=== PATIENT | female | born 1960 | race Caucasian/White ===

== ENCOUNTER 2018-06-08 10:01 | Day surgery (SDC) | payer OTHER ==
[~2018-06-08 10:01] MED LIST: DAILY VALUE1 EACH PO; LISINOPRIL20 MG PO; PROAIR HFA8.5 GM INH
[2018-06-08] MEDS ORDERED: ALBUTEROL2.5 MG/3 M INH (10:26)
--- NOTE | 2018-06-08 11:32 | NUR ---
06/08/18 1132 Cristina,Silva 1123 PT ARRIVED TO PACU COUGHING AND ON 6L MASK, RESP EVEN. PT DENIES NAUSEA AND PAIN. PT REORINETED TO PACU, PT AWAKE AND TALKING. 1128 O2 MASK REMOVED. 1129 AT BEDSIDE TALKNG TO PT. PT SITTING IN HIGH FOWLERS AND COUGHING OFF AND ON. PT DENIES SOB.
--- NOTE | 2018-06-08 11:47 | NUR ---
ICED WATER AND CRACKERS GIVEN. SPOUSE @ BS. CALL LIGHT W/IN REACH.
--- NOTE | 2018-06-08 12:36 | NUR ---
DC INSTRUCTIONS GIVEN IN PRESENCE OF SPOUSE AND BOTH VERBALIZE UNDERSTANDING. PATIENT DRESSING SELF.
--- NOTE | 2018-06-08 12:50 | NUR ---
PATIENT TRANSFERS SELF TO AND THEN PERSONAL VEHICLE AND TOLERATES THAT WELL.
--- NOTE | 2018-06-08 13:25 | PREHP ---
[facility] [address] [place], [place] [address] Signed ADMISSION DATE: 06/08/2018 CHIEF COMPLAINT: Right pharyngeal squamous cell carcinoma. HISTORY: Fide is a 58-year-old lady with a recently diagnosed right pharyngeal carcinoma. She had a direct laryngoscopy, esophagoscopy April 28, 2018, at [facility]. This showed a tumor on a stalk, felt to be completely excised, but turned out to be a squamous cell carcinoma, poorly differentiated. Margins were uncertain, least dysplasia at the margin edge. She is being taken to the operating room at this time for reinspection. Exam under anesthesia, direct laryngoscopy, esophagoscopy. PAST HISTORY AND REVIEW OF SYSTEMS: Generally positive for hypertension, high cholesterol. ALLERGIES: No allergies to medications. CURRENT MEDICATIONS: Lisinopril, vitamins. PAST SURGICAL HISTORY: Tubal ligation and the above-mentioned laryngoscopy. SOCIAL HISTORY: She is , lives in [place]. 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. Positive smoking and alcohol. FAMILY HISTORY: Unremarkable. PHYSICAL EXAMINATION: VITAL SIGNS: Stable, afebrile. GENERAL: Well-developed, well-nourished female, in no distress. HEAD AND NECK: Essentially unremarkable. No neck masses. CHEST: Clear. HEART: Regular rate and rhythm. ABDOMEN: Benign. EXTREMITIES: Benign. NEUROLOGIC: Grossly intact. IMPRESSION: Electronically Signed By: CHRIS POSADA MD 06/08/18 1325 PATIENT NAME: FIDE CHAVEZ PREETI PREOPERATIVE H&P DATE OF : 64 REPORT #: [id number] PHYSICIAN: CHRIS POSADA MD PCP: YAHAIRA SANTOS MD REPORT IS CONFIDENTIAL AND NOT TO BE RELEASED WITHOUT AUTHORIZATION [facility] [address] [place], [place] [address], [place] [address] Signed Right pharyngeal squamous cell carcinoma. RECOMMENDATIONS: She will be taken to the OR for exam under anesthesia, direct laryngoscopy, esophagoscopy to examine the tumor site. The risks of surgery including bleeding, infection, need for further therapy pending outcome of this procedure have all been explained and accepted by Fide. She understands and desires to proceed. Chris Posada MD GC/MODL /[id number] Copies: ~ Electronically Signed By: CHRIS POSADA MD 06/08/18 1325 PATIENT NAME: FIDE CHAVEZ PREETI PREOPERATIVE H&P DATE OF : 64 REPORT #: [id number] PHYSICIAN: CHRIS POSADA MD PCP: YAHAIRA SANTOS MD REPORT IS CONFIDENTIAL AND NOT TO BE RELEASED WITHOUT AUTHORIZATION
--- NOTE | 2018-06-08 19:09 | EKG ---
[facility] [address] [facility] [place], [place] [address] Signed Normal sinus rhythm Normal ECG No previous ECGs available Confirmed by VASQUEZ SCOTT MD ([id number]) on 06/08/2018 7:08:57 PM Electronically Signed By: VASQUEZ SCOTT MD 06/08/18 1909 PATIENT NAME: LELE CHAVEZ PREETI Electrocardiogram DATE OF : 64 PHYSICIAN: VASQUEZ SCOTT MD REPORT #: [id number] REPORT IS CONFIDENTIAL AND NOT TO BE RELEASED WITHOUT AUTHORIZATION
--- NOTE | 2018-06-29 12:42 | OR ---
[facility] [address] [place] [place] [place], [place] [address] Signed DATE OF OPERATION: 06/08/2018 SURGEON: Chris Novak MD OUTPATIENT SURGERY LOCATION: [facility]. PREOPERATIVE DIAGNOSIS: Right pharyngeal squamous cell carcinoma. POSTOPERATIVE DIAGNOSIS: Right pharyngeal squamous cell carcinoma. PROCEDURE: Direct laryngoscopy, biopsy of right pharyngeal lesion. ANESTHESIA: General orotracheal; SLIVER CUTTER, Hollis. PREOPERATIVE HISTORY: Fide is a 58-year-old lady with a recent diagnosis of a right pharyngeal squamous cell carcinoma. This was done endoscopically appeared to be totally excised. Margins were questionable on the initial biopsy and she is taken to the operating room for reinspection of this area. OPERATIVE PROCEDURE AND FINDINGS: After informed consent, the patient was taken to the operating room, placed in supine position where general orotracheal anesthesia was induced. The patient and procedure were verified. The patient was repositioned. Dedo laryngoscope was used to visualize the hypopharynx and larynx, focusing on the right side. The area of previous excision, right pharyngeal wall, just beneath the larynx was clear. There was some friable tissue anterior, which was biopsied with several small cup biopsy forceps. Specimens were taken and sent in formalin. Looking down inferior distal to the previous tumor site, there was no abnormalities and coming back several passes through, I did not see any abnormalities. No exophytic lesions, nothing other than a bit of friable tissue, which was biopsied. The scope was removed. Minimal bleeding stopped afterwards. The patient was then awakened, extubated, transported to recovery room in good condition. Electronically Signed By: CHRIS NOVAK MD 06/29/18 1242 PATIENT NAME: FIDE CHAVEZ OPERATIVE REPORT DATE OF : 64 REPORT #: [id number] PHYSICIAN: CHRIS NOVAK MD PCP: YAHAIRA SANTOS MD REPORT IS CONFIDENTIAL AND NOT TO BE RELEASED WITHOUT AUTHORIZATION [facility] [address] [place], [place] [address], [place] [address] Signed COMPLICATIONS: No complications. BLOOD LOSS: Minimal. SPECIMEN: To pathology. DRAINS: No drains. Chris Novak MD GC/PRAVEENAL /[id number] Copies: ~ Electronically Signed By: CHRIS NOVAK MD 06/29/18 1242 PATIENT NAME: FIDE CHAVEZ OPERATIVE REPORT DATE OF : 64 REPORT #: [id number] PHYSICIAN: CHRIS NOVAK MD PCP: YAHAIRA SANTOS MD REPORT IS CONFIDENTIAL AND NOT TO BE RELEASED WITHOUT AUTHORIZATION
== END 2018-06-08 12:45 | disposition home or self-care (01) ==
LOC: OPS 10:01 → DS 10:01 → OPS 10:45 → DS 10:45 → OPS 12:45
PROVIDERS: Otolaryngology
PROC: 0CBM8ZX Excision of Pharynx, Via Natural or Artificial Opening Endoscopic, Diagnostic (ICD-10-PCS; principal; 2018-06-08 10:45)
DX: D00.08 Carcinoma in situ of pharynx (principal); I10 Essential (primary) hypertension; E78.00 Pure hypercholesterolemia, unspecified; Z98.890 Other specified postprocedural states; Z79.899 Other long term (current) drug therapy
CPT/HCPCS: 00320; 88305; 88341; 88342; 93005; 93010; J0330; J1100; J2405; J2704; J3010

== ENCOUNTER 2019-04-19 09:05 | Day surgery (SDC) | payer OTHER ==
[~2019-04-19] VITALS: Ht 160 cm; Wt 57.6 kg
[~2019-04-19 09:05] MED LIST changes: +ALBUTEROL2.5 MG/3 M INH; +NAPROXEN CR500 MG PO; +NORCO 5-325 TA1 EACH PO; +VENLAFAXINE HCL25 MG PO
--- NOTE | 2019-04-19 10:43 | NUR ---
04/19/19 1043 Silva Evans 1034 PT ARRIVED TO PACU AWAKE AND TALKING. PT DENIES SMALL AMOUNT OF PAIN IN THROAT. 1035 O2 REMOVED. HOB INCREASED. 1040 MD AT BEDSIDE TALKING TO PT. PLAN OF CARE DISCUSSED.
--- NOTE | 2019-04-19 14:54 | OR ---
[facility] [address] [place], [place] [address] Signed DATE OF OPERATION: 04/19/2019 SURGEON: Chris Novak MD PREOPERATIVE DIAGNOSIS: Right pharyngeal carcinoma. POSTOPERATIVE DIAGNOSIS: Right pharyngeal carcinoma. PROCEDURE: Direct laryngoscopy, biopsy of right pharyngeal lesion. ANESTHESIA: General orotracheal; GOLF COURSE ARCHITECT, Nae Rios. PREOP HISTORY: Fide is a 58-year-old lady with a diagnosis of a right pharyngeal carcinoma about a year ago. This was felt to be completely excised. Reinspection several months ago with a direct laryngoscopy showed carcinoma in situ. She has done well, continues to have some dysphagia in the right pharynx. She is taken to the operating room for the above-mentioned procedures. OPERATIVE PROCEDURE AND FINDINGS: After informed consent, the patient was taken to the operating room, placed in supine position where general orotracheal anesthesia was induced. The patient and procedure were verified. Digital palpation of the right pharynx showed no abnormalities. The anterior commissure laryngoscope was used to visualize the hypopharynx and larynx. Really just some nodular tissue in the right piriform medial portion. This was slightly friable tissue. No obvious lesions. No other suspicious areas. Several biopsies were taken with the cup forceps and sent to the pathology in formalin. Minimal bleeding stopped afterwards. No other abnormality. Scope was removed. The patient was awakened, extubated, transported to recovery room in good condition. No complications. BLOOD LOSS: Minimal. SPECIMEN: To Pathology. Electronically Signed By: CHRIS NOVAK MD 04/19/19 1454 PATIENT NAME: FIDE CHAVEZ PREETI OPERATIVE REPORT DATE OF : 64 REPORT #: [id number] PHYSICIAN: CHRIS NOVAK MD PCP: YAHAIRA SANTOS MD REPORT IS CONFIDENTIAL AND NOT TO BE RELEASED WITHOUT AUTHORIZATION [address] [address] Signed DRAINS: None. Chris Novak MD GC/MODL /[id number] Copies: ~ Electronically Signed By: CHRIS NOVAK MD 04/19/19 1454 PATIENT NAME: FIDE CHAVEZ PREETI OPERATIVE REPORT DATE OF : 64 REPORT #: [id number] PHYSICIAN: CHRIS NOVAK MD PCP: YAHAIRA SANTOS MD REPORT IS CONFIDENTIAL AND NOT TO BE RELEASED WITHOUT AUTHORIZATION
--- NOTE | 2019-04-21 10:38 | PATH ---
[facility] [address] [place], [place] [address] Signed SPECIMEN(S): A RIGHT PHARYNX SPECIMEN SOURCE: A. RIGHT PHARYNX CLINICAL HISTORY: Preop/postop DX: Right pharyngeal squamous cell carcinoma. FINAL PATHOLOGIC DIAGNOSIS: Mucosa, right pharynx, biopsy: - Squamous cell carcinoma in situ. - Negative for HPV effect by p16 Immunostain. COMMENT: As part of [facility]' Quality Improvement Program, this case was reviewed by another member of our pathology staff. ZAKI:kaylee:Davey___ MICROSCOPIC EXAMINATION: Histologic sections of all submitted blocks are examined by light microscopy. These findings, together with the gross examination, support the pathologic diagnosis. Immunostain for p16 is obtained along with an appropriately positive control and is negative, consistent with a lack of HPV effect. GROSS DESCRIPTION: The specimen, labeled "PM, right pharyngeal lesion," is received in formalin and consists of two, 0.4 and 0.5 cm, contreras-brown tissue fragments. Specimen is entirely submitted in cassette (A1). AM (under the direct supervision of a pathologist) The Gross Description was prepared using a voice recognition system. The report was reviewed for accuracy; however, sound-alike word errors, addition and/or deletions may occur. If there is any question about this report, please contact Client Services. ADDITIONAL NOTES: Immunohistochemical and/or in situ hybridization studies were performed on this case with the appropriate positive controls that react as expected. This test was developed and its performance characteristics determined by [facility]. It has not been cleared or approved by the U.S. Food and Drug Administration. The FDA has determined that PATIENT NAME: LELE CHAVEZ PATHOLOGY DATE OF : 64 REPORT #: [id number] PHYSICIAN: SILVIO ROCHE PCP: YAHAIRA SANTOS MD REPORT IS CONFIDENTIAL AND NOT TO BE RELEASED WITHOUT AUTHORIZATION [facility] [address] [place], [place] [address] Signed such clearance or approval is not necessary. This test is used for clinical purposes. It should not be regarded as investigational or for research. [facility] is certified under the Clinical Laboratory Improvement Amendments of 1988 (CLIA) as qualified to perform high complexity clinical laboratory testing. PERFORMING LABORATORY: The technical component was performed by [facility] [address] (Feather Mixer: Priscilla Boss MD; CLIA# [id number]). Professional interpretation was performed by [facility], [address] [address] (Feather Mixer: Anthony Dial MD; CLIA# [id number]). Diagnostician: Anthony Dial MD Pathologist Electronically Signed 04/21/2019 Copies: ~ PATIENT NAME: LELE CHAVEZ PATHOLOGY DATE OF : 64 REPORT #: [id number] PHYSICIAN: SILVIO PATHOLOGY PCP: YAHAIRA SANTOS MD REPORT IS CONFIDENTIAL AND NOT TO BE RELEASED WITHOUT AUTHORIZATION
== END 2019-04-19 11:50 | disposition home or self-care (01) ==
LOC: DS 09:05 → OPS 09:05 → DS 09:15 → OPS 09:15
PROVIDERS: Otolaryngology
PROC: 0CBM8ZX Excision of Pharynx, Via Natural or Artificial Opening Endoscopic, Diagnostic (ICD-10-PCS; principal; 2019-04-19 09:15)
DX: D00.08 Carcinoma in situ of pharynx (principal); I10 Essential (primary) hypertension; E78.00 Pure hypercholesterolemia, unspecified; F41.9 Anxiety disorder, unspecified; Z79.899 Other long term (current) drug therapy; Z98.890 Other specified postprocedural states; Z87.891 Personal history of nicotine dependence
CPT/HCPCS: J0330; J1100; J2405; J2704; J3010; J7121

== ENCOUNTER 2019-12-05 05:40 | Day surgery (SDC) | payer OTHER ==
[~2019-12-05] VITALS: Ht 160 cm; Wt 60.8 kg
[~2019-12-05 05:40] MED LIST changes: +AMLODIPINE BESY10 MG PO
[2019-12-05] MEDS ORDERED: DICLOFENAC SODI75 MG PO (07:43)
[2019-12-05] MEDS ORDERED: HYDROCODON-ACE1 EA11 PO (07:43)
--- NOTE | 2019-12-05 08:11 | NUR ---
12/05/19 0811 Malina Harvey 0773 PT ARRIVED IN PACU SLEEPY WITH NO C/O'S. 0800 CRYO CUFF PLACED ON R SHOULDER PER DR ORDERS. OXYGEN REMOVED. SATS 88-90% ON RA WITH COUGH, DEEP BREATHING. O2 AT 2L VIA NC PLACED. SATS 97%. 0810 RESTING. REU.
--- NOTE | 2019-12-05 14:22 | OR ---
[facility] [address] [place], [place] [address] Signed DATE OF OPERATION: 12/05/2019 SURGEON: Julio Cesar Dial MD PREOPERATIVE DIAGNOSIS: Right distal clavicle nonunion. POSTOPERATIVE DIAGNOSIS: Right distal clavicle nonunion. PROCEDURE PERFORMED: Excision of right distal clavicle. HUMANITIES PROFESSOR: Mercedes Mason PA-C. Mercedes was present and critical for all portions of procedure. PAS. ANESTHESIA: General with interscalene block. BLOOD LOSS: 100 mL. SPECIMEN: Distal clavicle was excised and saved for the patient. BRIEF HISTORY: Fide is a 59-year-old female with a history of a fall and a distal clavicle fracture. She was treated by her PCP for nonunion. She presented to my office. Risks and benefits of operative treatment were discussed with her and she elected to proceed. DESCRIPTION OF PROCEDURE: Once consent was obtained, she was taken to the operating room. After adequate anesthesia, she was placed in the beach chair position. All downside pressure points were well padded. Due to the extensive nonunion with large widening, excision was the only viable option for this. She did have AC arthrosis as well. Once she was adequately positioned, a preop time-out was obtained, and all were in agreement. The shoulder was prepped and draped in a standard sterile fashion. The shoulder bursa was Electronically Signed By: JULIO CESAR DIAL MD 12/05/19 1422 PATIENT NAME: FIDE CHAVEZ OPERATIVE REPORT DATE OF : 64 REPORT #: [id number] PHYSICIAN: JULIO CESAR DIAL MD PCP: YAHAIRA SANTOS MD REPORT IS CONFIDENTIAL AND NOT TO BE RELEASED WITHOUT AUTHORIZATION [facility] [address] [place] [address] Signed this was carried through skin and subcutaneous tissue. The periosteum overlying the clavicle was then incised longitudinally and elevated anteriorly and posteriorly. We were able to identify the nonunion, which was widened by about a cm. The distal clavicle was then elevated and the inferior AC ligament was removed and the distal clavicle was dissected free of surrounding soft tissue removed. The wound was then copiously irrigated. All bleeders were cauterized and Jeramie was placed to stop bleeding. The periosteum was then closed brianna for the skin. The wound was dressed with taken to recovery room in satisfactory condition. All sponge, needle and instrument counts were correct. Julio Cesar Dial MD BA/DAVEY /[id number] Copies: ~ Electronically Signed By: JULIO CESAR DIAL MD 12/05/19 1422 PATIENT NAME: FIDE CHAVEZ OPERATIVE REPORT DATE OF : 64 REPORT #: [id number] PHYSICIAN: JULIO CESAR DIAL MD PCP: YAHAIRA SANTOS MD REPORT IS CONFIDENTIAL AND NOT TO BE RELEASED WITHOUT AUTHORIZATION
== END 2019-12-05 09:40 | disposition home or self-care (01) ==
LOC: DS 05:40
PROVIDERS: Specialist
PROC: 0PS Upper Bones, Reposition (ICD-10-PCS; principal; 2019-12-05 06:45)
DX: S42.031K Displaced fracture of lateral end of right clavicle, subsequent encounter for fracture with nonunion (principal); G89.29 Other chronic pain; Z79.899 Other long term (current) drug therapy; Z87.891 Personal history of nicotine dependence; Z79.891 Long term (current) use of opiate analgesic
CPT/HCPCS: 00450; 64416; 73000; 76942; J0690; J0735; J1100; J1885; J2001; J2250; J2405; J2704; J2765; J3010; J7121

== ENCOUNTER 2022-04-11 05:55 | Day surgery (SDC) | payer OTHER ==
[~2022-04-11] VITALS: Ht 160 cm; Wt 55.5 kg
[~2022-04-11 05:55] MED LIST changes: +DICLOFENAC SODI75 MG PO; +HYDROCODON-ACE1 EA11 PO; +NAPROXEN500 M1 PO
--- NOTE | 2022-04-11 08:31 | NUR ---
04/11/22 0831 Silva Evans 0883 PT ARRIVED TO PACU ON RA AND TALKING TO RN. PT REPORTS "I WANT THIS OUT" PT WANTS IV REMOVED. PT EAISLY FALLS BACK TO SLEEP AND IS REORIENTED TO PACU. 0828 PT ROLLED TO BACK AND HOB INCREASED. PT AWAKE AND TALKING TO RN. IV REMAINS IN PLACE AND WNL.
--- NOTE | 2022-04-12 07:10 | OR ---
[facility] [address] [place], [place] [address] Signed DATE OF OPERATION: 04/11/2022 SURGEON: Lindsay Storm MD PREOPERATIVE DIAGNOSES: 1. Long redundant colon. 2. Diverticulosis. 3. Mother with colonic polyps in her 60s. 4. Chronic left upper quadrant abdominal pain. 5. Daily alcohol use. 6. Daily NSAID use. 7. Resolved melena. 8. 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 POSTOPERATIVE DIAGNOSES: 1. Antral gastric ulcers x2. 2. Small hiatal hernia 2-3 cm. 3. GE junction at 36 cm. 4. Long redundant colon. 5. Minimal left-sided diverticulosis. 6. Minimal internal hemorrhoid tissue. PROCEDURES: 1. Esophagogastroduodenoscopy with CLOtest and biopsy of the antrum. 2. Colonoscopy without biopsy. ESTIMATED BLOOD LOSS: None. INDICATIONS: Fide is a 61-year-old female, asked to see me for upper and lower endoscopy. I helped her with a colonoscopy in 2017 at the age of 56. We know she has a long redundant colon with diverticulosis. She used a normal amount of Versed and fentanyl. We initially asked her to follow up in 10 years. In the meantime, it was discovered that her mother had colonic polyps back in her 60s. More recently, Fide has had various long-standing abdominal complaints. She often has left upper quadrant abdominal pain for which no etiology has been found. She has chronic pain issues including her arthritis. She uses CBD oil as well as marijuana. She also uses alcohol daily, NSAIDs. She also has hydrocodone. She had black tarry stool for about four days in October 2021. That seemed to resolve. She had cut back on the naproxen and added Protonix twice a Electronically Signed By: LINDSAY STORM MD 04/12/22 0710 PATIENT NAME: FIDE CHAVEZ OPERATIVE REPORT DATE OF : 64 REPORT #: [id number] PHYSICIAN: LINDSAY STORM MD PCP: MARRY BARNETT PA-C REPORT IS CONFIDENTIAL AND NOT TO BE RELEASED WITHOUT AUTHORIZATION [facility] [address] [place], [place] [address] Signed day. Her FIT test came back negative. Her primary care provider wanted her to come for repeat upper and lower endoscopy. In the office, I gave Fide a pamphlet on upper and lower endoscopy. We reviewed the nature of the two tests. There is risk including, but not limited to gas bloating, crampy abdominal pain, bleeding, perforation requiring surgery, and missed diagnosis. She also required monitored anesthesia care given her very frail nature and her daily use of alcohol, narcotics and NSAIDs. She had expressed understanding and wished to proceed. PROCEDURE IN DETAIL: Fide was taken into our endoscopy suite and placed in the supine semi-recumbent position. The posterior oropharynx was anesthetized with Hurricaine spray. A bite block was utilized throughout the case. She was given monitored anesthesia care with propofol per our nurse produce specialist. The adult gastroscope had been introduced and we just saw small 3 or 4 mm nodule off to the side of the retinoid in the vallecula. She will need to follow that up with her ENT physician, Dr. Posada. Vocal cords were unremarkable. The scope passed nicely down the esophagus and out into the stomach. We could see the inflammatory changes in the antrum and the two nonbleeding ulcers just a few cm apart. We passed the scope into the pyloric channel and out into the duodenum. The duodenum and pyloric channel were unremarkable. Again, the antrum showed diffuse erythematous changes surrounding these two ulcers. We took pictures throughout for photodocumentation. We took biopsies from the antrum for CLOtest as well as pathologic review. The rest of the stomach was unremarkable. Upon retroflexion of scope we could see she has a small hiatal hernia about 2 or 3 cm in length. The scope was withdrawn up through the area of the GE junction, which was compliant without stricture. There was no gastric or esophageal varices. Very minimal disruption to the Z-line. There was no Delvalle's mucosa. Distal middle and upper esophagus were unremarkable. After this the gas was suctioned out and the gastroscope removed. Fide tolerated the upper endoscopy quite well. Fide was rotated into the left lateral decubitus position. She was maintained on IV sedation with propofol per nurse produce specialist. A digital rectal exam was performed and this was unremarkable. She had good sphincter tone. No masses and no external hemorrhoids. The adult colonoscope was introduced very carefully up through her long redundant tortuous sigmoid and left colon. The propofol helped significantly on this occasion. We did use some extra propofol and abdominal compression in order to advance the scope directly into the cecum itself. Her prep was quite excellent. We could easily see the appendiceal orifice and the ileocecal valve. The scope was then slowly withdrawn. We took pictures throughout for photodocumentation. There were no polyps found. She does have a minimal left-sided diverticulosis. They are moderate in size, few in number, and scattered about. The rectum was unremarkable. Upon retroflexion of scope, she has very minimal internal hemorrhoid tissue. After this, the gas was suctioned out. The colonoscope removed. Fide tolerated the procedure quite well. Electronically Signed By: LINDSAY STORM MD 04/12/22 0710 PATIENT NAME: FIDE CHAVEZ OPERATIVE REPORT DATE OF : 64 REPORT #: [id number] PHYSICIAN: LINDSAY STORM MD PCP: MARRY BARNETT PA-C REPORT IS CONFIDENTIAL AND NOT TO BE RELEASED WITHOUT AUTHORIZATION [facility] [address] [place] [address] Signed RECOMMENDATIONS: I will see Fide back in my office in 7 to 14 days to review her results. She needs to abstain from alcohol, NSAIDs and aspirin for a couple of months to allow these two ulcers to heal. She should probably take her proton pump inhibitor twice a day during that time. Lindsay Storm MD ALB/MODL /[id number] cc: MD Marry Mullen PA Copies: LINDSAY STORM MD ~ Electronically Signed By: LINDSAY STORM MD 04/12/22 0710 PATIENT NAME: FIDE CHAVEZ OPERATIVE REPORT DATE OF : 64 REPORT #: [id number] PHYSICIAN: LINDSAY STORM MD PCP: MARRY BARNETT PA-C REPORT IS CONFIDENTIAL AND NOT TO BE RELEASED WITHOUT AUTHORIZATION
--- NOTE | 2022-04-15 15:03 | PATH ---
[facility] [address] [place], [place] [address] Signed SPECIMEN(S): A ANTRUM/PYLORUS BIOPSY SPECIMEN SOURCE: A. ANTRUM/PYLORUS BIOPSY CLINICAL HISTORY: Pre: LUQ pain, melena. Post: Gastric ulcers x 2, small hiatal hernia, diverticulosis, redundant colon, internal hemorrhoids. FINAL PATHOLOGIC DIAGNOSIS: Antrum / pylorus biopsy: - Benign gastric-type mucosa with focal slight chronic inflammation. - Negative for evidence of Helicobacter organisms on routine HE stained sections. JVR:[facility]:C2NR MICROSCOPIC EXAMINATION: Histologic sections of all submitted blocks are examined by light microscopy. These findings, together with the gross examination, support the pathologic diagnosis. GROSS DESCRIPTION: The specimen, labeled "PM, antrum/pylorus biopsy," is received in formalin and consists of one contreras soft tissue fragment that measures 0.2 cm in greatest dimension. The specimen is entirely submitted in cassette (A1). VB (under the direct supervision of a pathologist) The Gross Description was prepared using a voice recognition system. The report was reviewed for accuracy; however, sound-alike word errors, addition and/or deletions may occur. If there is any question about this report, please contact Client Services. PERFORMING LABORATORY: The technical component was performed by [facility], [address] [place] [id number] (CLIA# [id number]). Professional interpretation was performed by [facility], [address] [place] [id number] (CLIA#: [id number]). Diagnostician: Dave Cesar MD Pathologist Electronically Signed 04/15/2022 PATIENT NAME: LELE CHAVEZ PATHOLOGY DATE OF : 64 REPORT #: [id number] PHYSICIAN: SILVIO PATHOLOGY PCP: MARRY BARNETT PA-C REPORT IS CONFIDENTIAL AND NOT TO BE RELEASED WITHOUT AUTHORIZATION [address] [address] Signed Copies: ~ PATIENT NAME: LELE CHAVEZ PATHOLOGY DATE OF : 64 REPORT #: [id number] PHYSICIAN: SILVIO PATHOLOGY PCP: MARRY BARNETT PA-C REPORT IS CONFIDENTIAL AND NOT TO BE RELEASED WITHOUT AUTHORIZATION
== END 2022-04-11 08:52 | disposition home or self-care (01) ==
LOC: OPS 05:55 → DS 05:55 → OPS 07:30
PROVIDERS: ATTEND Colon & Rectal Surgery
PROC: 0DB78ZX Excision of Stomach, Pylorus, Via Natural or Artificial Opening Endoscopic, Diagnostic (ICD-10-PCS; principal; 2022-04-11 07:30)
PROC: 0DJD8ZZ Inspection of Lower Intestinal Tract, Via Natural or Artificial Opening Endoscopic (ICD-10-PCS; 2022-04-11 07:30)
DX: R10.12 Left upper quadrant pain (principal); K57.30 Diverticulosis of large intestine without perforation or abscess without bleeding; K63.89 Other specified diseases of intestine; Z83.71 Family history of colonic polyps; K25.9 Gastric ulcer, unspecified as acute or chronic, without hemorrhage or perforation; K44.9 Diaphragmatic hernia without obstruction or gangrene; Z87.891 Personal history of nicotine dependence; K64.8 Other hemorrhoids; Z78.9 Other specified health status
CPT/HCPCS: 36415; 87077; J2001; J2704; J7121